=== PATIENT | male | born 1940 | race Two or more races ===

== ENCOUNTER 2018-12-06 18:22 | Emergency (ER) | payer MEDICARE ==
[~2018-12-06] VITALS: Ht 162.6 cm; Wt 86.2 kg
[2018-12-06] MEDS ORDERED: TDAP [DIPH/PERTUSSIS/TET] 0.5 ML VIAL IM ONE ×2 (19:00→19:37)
[2018-12-06] MEDS ORDERED: ACETAMINOPHEN ES 500 MG TABLET PO ONE (19:00)
--- NOTE | 2018-12-06 19:30 | NUR ---
RECEIVED PT IN BED, PT SEE FOR GROUND LEVEL FALL. PT HAD CT SCAN AND XRAY DONE ORDERE.
--- NOTE | 2018-12-06 19:30 | NUR ---
Pt returned from ct and was placed in bed
[2018-12-06] MEDS ORDERED: ACETAMINOPHEN ES 500 MG TABLET ONE (19:37)
--- NOTE | 2018-12-06 20:20 | NUR ---
ALL DUE MED AND TDAP INJ GIVEN ORDERED. PT WILL BE D/C TO HOME AND WILL BE TRANSPORTED BY FAMILY.
[2018-12-06 20:28] VITALS: BP 144/84
== END 2018-12-06 20:28 | disposition home or self-care (01) ==
LOC: ER 18:31
DX: S63.296A Dislocation of distal interphalangeal joint of right little finger, initial encounter (principal); S63.294A Dislocation of distal interphalangeal joint of right ring finger, initial encounter; S00.33XA Contusion of nose, initial encounter; S40.211A Abrasion of right shoulder, initial encounter; E78.00 Pure hypercholesterolemia, unspecified; E07.9 Disorder of thyroid, unspecified; Z60.2 Problems related to living alone; W01.0XXA Fall on same level from slipping, tripping and stumbling without subsequent striking against object, initial encounter; Y93.01 Activity, walking, marching and hiking; Y92.89 Other specified places as the place of occurrence of the external cause; Y99.8 Other external cause status
CPT/HCPCS: 26770 ×2; 70450; 70486; 73030; 73140; 90471; 90715; 99284; A6403